=== PATIENT | female | born 1970 | race Caucasian/White ===

== ENCOUNTER 2021-06-19 12:15 | Emergency (ER) | payer OTHER, SELFPAY ==
--- NOTE | ~2021-06-19 | CT_ITS ---
EXAMINATION: CT abdomen pelvis w con EXAM DATE: 06/19/2021 16:57 INDICATION: Right lower quadrant pain for 2 days. TECHNIQUE: Spiral CT of the abdomen and pelvis was performed following intravenous injection of 100 m L Omnipaque 350. Axial, coronal and sagittal images of the abdomen and pelvis were reviewed. The do se-length product (DLP) for this examination was 271.46 mGy-cm. The exposure was tailored according to patient size (auto mA exposure control), and iterative reconstruction (ASIR) was used as additiona l dose reduction technique. Comparison is made to prior examination from 06/27/2017. FINDINGS: The liver, spleen, adrenal glands and pancreas are unremarkable. Gallbladder is unremarkab le. No biliary obstruction. Portal and splenic veins are patent. Kidneys enhance symmetrically. T here is no hydronephrosis. The uterus is unremarkable. The bladder is unremarkable. There is no retroperitoneal or pelvic lymphadenopathy. There is mild to moderate scattered arteriosclerotic dis ease. The appendix is not positively visualized. There is no pericecal inflammatory change to suggest appe ndicitis. There is small sliding gastroesophageal hiatal hernia. Moderate to large amount of gas a nd stool in the rectal vault, moderate amount of transverse and ascending colonic fluid and stool. No free intraperitoneal gas. The heart is normal in size. There are no pericardial or pleural effu sions. The lung bases are unremarkable. There are no osteoblastic or osteolytic lesions identified. IMPRESSION: 1. Moderate colonic fluid, stool and gas. 2. No acute intra-abdominal findings. Reviewed, dictated and finalized at location A.
[2021-06-19 12:21] VITALS: BP 98/56; PULSE 88; RESP 20; TEMP 36.6; O2SAT 100
[2021-06-19 12:36] LABS: Basophils Absolute Auto 0.1 K/mm3 (0.0-0.1); Basophils Percent Auto 1.3 % (0.2-1.2); Eosinophils Absolute Auto 0.1 K/mm3 (0-0.3); Eosinophils Percent Auto 2.5 % (0-4.4); Hematocrit 36.9 % (37.0-47.0); Hemoglobin 12.1 g/dL (12.0-15.0); Immature Granulocyte Absolute 0.01 K/mm3 (0.00-0.031); Immature Granulocyte Percent A 0.2 % (0-0.5); Lymphocytes Absolute Auto 1.47 K/mm3 (0.9-3.2); Mean Corpuscular HGB Conc 32.8 g/dl (32-36); Mean Corpuscular Hemoglobin 28.5 pg (26-34); Mean Corpuscular Volume 86.8 fl (80-100); Mean Platelet Volume 8.4 fl (7.4-10.4); Monocytes Absolute Auto 0.3 K/mm3 (0.1-0.6); Monocytes Percent Auto 5.9 % (2.6-8.5); Neutrophils Absolute Auto 3.3 K/mm3 (1.3-6.7); Neutrophils Percent Auto 62.1 % (45.5-73.1); Platelet Count Result 237 k/mm3 (150-375); Red Blood Count 4.25 M/mm3 (4.2-5.4); Red Cell Distribution Width 16.4 % (11.5-14.5); White Blood Count 5.3 K/mm3 (4.5-10.0)
[2021-06-19 12:44] LABS: Add Urine Microscopic? YES; Appearance Urine Clear (Clear); Bilirubin Urine Negative (Negative); Blood Urine Negative (Negative); Color Urine Yellow (Yellow); Glucose Urine UA Negative (Negative); Ketones Urine Trace mg/dL (Negative); Leukocyte Esterase Ur Negative LEU/UL (Negative); Mucus Urine Few /lpf; Nitrate Urine Negative (Negative); Protein Urine 1+ mg/dL (Negative); Specific Grav Ur 1.027 (1.001-1.035); Squamous Epithelial Cell Urine Moderate /hpf (Few); Urobilinogen Urine Negative mg/dL (<2.0)
[2021-06-19 12:49] LABS: Alanine Aminotransferase 15 U/L (4-35); Albumin Level 4.4 g/dL (3.5-5.1); Alkaline Phosphatase 114 U/L (38-126); Anion Gap 11 mmol/L (8-16); Aspartate Amino Transferase 20 U/L (14-36); Bilirubin,Total 0.6 mg/dL (0.2-1.3); Blood Urea Nitrogen 19 mg/dL (7-17); Calcium 9.5 mg/dL (8.4-10.2); Carbon Dioxide 21 mmol/L (22-30); Chloride 106 mmol/L (98-107); Estimated CRCL calculation 68 ml/min; Estimated Glomerular Filt Rate > 60; Glucose 159 mg/dL (65-110); Lipase 46 U/L (23-300); Potassium 3.7 mmol/L (3.4-5.0); Sodium 138 mmol/L (137-145)
[2021-06-19] MEDS: SODIUM CHLORIDE 0.9% IV 1,000 ML 999 ML IV CONT (16:16)
[2021-06-19] MEDS: MORPHINE SULFATE (*CRX) 4 MG/ML INJ IV PUSH (16:16)
[2021-06-19] MEDS: ONDANSETRON INJ 4 MG/2 ML VIAL IV PUSH (16:16)
--- NOTE | 2021-06-19 17:30 | ED.GENADULT ---
HPI - General Adult General Chief complaint: Abdominal Pain Stated complaint: Abd Pain Time Seen by Provider: 06/19/21 15:12 Source: patient and RN notes reviewed Mode of arrival: ambulatory Limitations: no limitations History of Present Illness HPI narrative: Patient is a 50-year-old female who presents couple days duration of discomfort in the right lower abdomen is a cramping sharp pain was referred to the emergency department for evaluation on arrival is resting comfortably in the room in no distress denies any vomiting diarrhea vaginal complaints or urinary symptoms denies similar occurrence in the past. Denies sick contacts. Pain is worse with activity and movement Related Data Allergies Allergy/AdvReac Type Severity Reaction Status Date / Time No Known Allergies Allergy Unverified 02/19/15 21:28 NUTRASWEET Allergy Mild Uncoded 06/21/10 10:25 Review of Systems Review of Systems: All systems reviewed & are unremarkable except as noted in HPI and below Exam Narrative: GENERAL: Well-appearing, well-nourished, and in no acute distress. HEAD: Normocephalic, atraumatic. EYES: PERRLA and EOMI. ENT: Nares clear, no rhinorrhea or epistaxis. Mucous membranes moist. CHEST: Clear to auscultation. No respiratory distress. No wheezes rales or rhonchi HEART: Regular rate and rhythm. No murmur heard. Normal peripheral pulses. ABDOMEN: Soft, tenderness of the right lower abdomen no rebound or guarding r, nondistended EXTREMITIES: Normal range of motion. No edema. SKIN: Warm, dry, no rash. NEURO: No focal deficits. Alert and oriented x3. PSYCH: Normal mood and affect. Course Course Emergency Course: Patient in the room nondistressed aware of case findings treatment plan and diagnosis agreeing to follow-up as instructed or to return if symptoms worsen or concerns. Patient likely with constipation as the etiology she was made aware of her case findings treatment plan and diagnosis she is nontoxic-appearing was hydrated medicated in the emergency department will be discharged home with outpatient follow-up and provided with reasons to return Vital Signs Vital signs: Vital Signs Temperature 97.8 F 06/19/21 12:21 Pulse Rate 88 06/19/21 12:21 Respiratory Rate 20 06/19/21 12:21 Blood Pressure 98/56 L 06/19/21 12:21 Pulse Oximetry 100 06/19/21 12:21 Temperature 97.8 F 06/19/21 12:21 Pulse Rate 88 06/19/21 12:21 Respiratory Rate 20 06/19/21 12:21 Blood Pressure 98/56 L 06/19/21 12:21 Pulse Oximetry 100 06/19/21 12:21 Medical Decision Making MDM Narrative Medical decision making narrative: Patient in the room nondistressed aware of case finding treatment plan and diagnosis agreeing to follow-up as instructed provided with reasons to return constipation is the likely etiology no other concerning findings in the imaging or blood work she is afebrile nontoxic-appearing nondistressed and will be discharged home Vital Signs Vital Signs: Vital Signs Temperature 97.8 F 06/19/21 12:21 Pulse Rate 88 06/19/21 12:21 Respiratory Rate 20 06/19/21 12:21 Blood Pressure 98/56 L 06/19/21 12:21 Pulse Oximetry 100 06/19/21 12:21 Temperature 97.8 F 06/19/21 12:21 Pulse Rate 88 06/19/21 12:21 Respiratory Rate 20 06/19/21 12:21 Blood Pressure 98/56 L 06/19/21 12:21 Pulse Oximetry 100 06/19/21 12:21 Lab Data Result diagrams: 06/19/21 12:27 06/19/21 12:27 Labs: Lab Results 06/19/21 06/19/21 06/19/21 Range/Units 12:27 12:27 12:32 WBC 5.3 (4.5-10.0) K/mm3 RBC 4.25 (4.2-5.4) M/mm3 Hgb 12.1 (12.0-15.0) g/dL Hct 36.9 L (37.0-47.0) % MCV 86.8 (80-100) fl MCH 28.5 (26-34) pg MCHC 32.8 (32-36) g/dl RDW 16.4 H (11.5-14.5) % Plt Count 237 (150-375) k/mm3 MPV 8.4 (7.4-10.4) fl Immature Gran % (Auto) 0.2 (0-0.5) % Neut % (Auto) 62.1 (45.5-73.1) % Lymph % (Auto) 28.0 (18.3-44.2) % Payne % (A
[2021-06-19 18:07] VITALS: BP 99/68; PULSE 65; RESP 22; O2SAT 98
== END 2021-06-19 18:09 | disposition home or self-care (01) ==
PROVIDERS: Emergency Medicine; Emergency Provider Emergency Medicine; PCP Family Medicine
DX: K59.00 Constipation, unspecified (principal)
CPT/HCPCS: 36415; 74177; 80053; 81001; 81025; 83690; 85025; 87086; 96361; 96374; 96375; 99284; J2270; J2405; J7030; Q9967

== ENCOUNTER → 2021-10-12 03:13 | Outpatient (CLI) | payer OTHER, SELFPAY ==
[2021-10-12 21:56] LABS: SARS-CoV-2 RNA PCR Negative
== END ==
PROVIDERS: PCP Nurse Practitioner Adult Health; Visit Provider Nurse Practitioner Adult Health
DX: J01.90 Acute sinusitis, unspecified (principal); Z20.822 Contact with and (suspected) exposure to COVID-19
CPT/HCPCS: C9803; U0003; U0005

== ENCOUNTER 2024-01-21 09:44 | Outpatient (CLI) | payer BC, SELFPAY ==
--- NOTE | ~2024-01-21 | XR_ITS ---
EXAMINATION: XR chest 2V DATE: 01/21/2024 09:58 INDICATION: Cough. Shortness of breath. TECHNIQUE: Frontal and lateral views of the chest were obtained. COMPARISON: CT abdomen and pelvis 06/19/2021 FINDINGS: There is no pneumonia, pleural effusion, or pneumothorax. The heart size is normal. IMPRESSION: 1. No acute cardiopulmonary disease. Reviewed, dictated and finalized at location A.
[2024-01-21 19:20] LABS: Hematocrit 42.2 % (37.0-47.0); Hemoglobin 13.3 g/dL (12.0-15.0); Mean Corpuscular HGB Conc 31.5 g/dl (32-36); Mean Corpuscular Hemoglobin 29.8 pg (26-34); Mean Corpuscular Volume 94.4 fl (80-100); Mean Platelet Volume 10.4 fl (7.4-10.4); Platelet Count Result 214 k/mm3 (150-375); Red Blood Count 4.47 M/mm3 (4.2-5.4); Red Cell Distribution Width 14.3 % (11.5-14.5); White Blood Count 9.3 K/mm3 (4.5-10.0)
[2024-01-21 19:46] LABS: Appearance Urine Turbid (Clear); Bacteria Urine 3+ /hpf; Bilirubin Urine 1+ (Negative); Blood Urine Negative (Negative); Color Urine Dark Yellow (Yellow); Glucose Urine UA Negative (Negative); Hyaline Casts Urine Present /lpf; Ketones Urine Trace mg/dL (Negative); Leukocyte Esterase Ur 1+ LEU/UL (Negative); Need Manual Microscopic Reviewed; Nitrate Urine Negative (Negative); Non Pathogenic Casts >20; Protein Urine 2+ mg/dL (Negative); RBC Urine 0-2 /hpf (0-2); Specific Grav Ur 1.025 (1.001-1.035); Squamous Epithelial Cell Urine Many /hpf (Few); pH Urine 5.5 (5.0-9.0)
[2024-01-21 19:48] LABS: Add Urine Microscopic? YES; Alanine Aminotransferase 26 U/L (6-35); Albumin Level 4.3 g/dL (3.5-5.1); Alkaline Phosphatase 111 U/L (38-126); Anion Gap 9 mmol/L (4-12); Aspartate Amino Transferase 52 U/L (14-36); Bilirubin,Total 0.5 mg/dL (0.2-1.3); Blood Urea Nitrogen 20 mg/dL (7-17); Calcium 9.4 mg/dL (8.4-10.2); Carbon Dioxide 21 mmol/L (22-30); Chloride 107 mmol/L (98-107); D Dimer 3.75 ug/mL (<0.48); Estimated Glomerular Filt Rate 39; Glucose 101 mg/dL (65-110); Potassium 3.5 mmol/L (3.4-5.0); Sodium 137 mmol/L (137-145)
== END 2024-01-21 09:45 | disposition home or self-care (01) ==
LOC: ANHBWCLAB 09:46
PROVIDERS: PCP Nurse Practitioner Adult Health; Visit Provider Nurse Practitioner Adult Health
DX: R05.9 Cough, unspecified (principal); R53.1 Weakness; R06.02 Shortness of breath
CPT/HCPCS: 36415; 71046; 80053; 81001; 85027; 85380

== ENCOUNTER 2024-01-22 09:08 | Emergency (ER) | payer BC, SELFPAY ==
--- NOTE | ~2024-01-22 | CT_ITS ---
EXAMINATION: CTA chest PE protocol DATE: 01/22/2024 10:13 CDT INDICATION: Shortness of breath TECHNIQUE: Computed tomographic angiography (CTA) of the chest was performed with 100 mL Omnipaque-35 0 intravenous contrast. The dose-length product was 179.91 mGy-cm. Maximum intensity projection 3D-re constructions of the aorta and other arteries were constructed by the technologist on a separate work station. Automated exposure control and iterative reconstruction technique were employed. COMPARISON: None. FINDINGS: Study is technically adequate without evidence for pulmonary embolism. No significant pleur al or pericardial effusion. Small hiatal hernia. Heart size normal. No thoracic lymphadenopathy. Ther e is mild atherosclerosis of the aorta. Upper abdomen is unremarkable. There is mild paraseptal emphy sema. There is dependent atelectasis. No suspicious pulmonary nodules or masses. Mild thoracic spondy losis. IMPRESSION: 1. No acute cardiopulmonary disease. No evidence for pulmonary embolism. Reviewed, dictated and finalized at location B.
[2024-01-22 09:15] VITALS: BP 151/96; PULSE 69; RESP 16; TEMP 36.8; O2SAT 100
[2024-01-22] MEDS: SODIUM CHLORIDE 0.9% IV 1,000 ML 999 ML IV CONT (09:23)
[2024-01-22 09:28] LABS: Basophils Percent Auto 0.3 % (0.2-1.2); Hematocrit 39.7 % (37.0-47.0); Hemoglobin 13.3 g/dL (12.0-15.0); Immature Granulocyte Absolute 0.05 K/mm3 (0.00-0.031); Immature Granulocyte Percent A 0.5 % (0-0.5); Immature Platelet Fraction Pct 4.1 % (0.9-11.2); Lymphocytes Percent Auto 12.4 % (18.3-44.2); Mean Corpuscular HGB Conc 33.5 g/dl (32-36); Mean Corpuscular Hemoglobin 30.5 pg (26-34); Mean Corpuscular Volume 91.1 fl (80-100); Mean Platelet Volume 9.8 fl (7.4-10.4); Monocytes Absolute Auto 0.6 K/mm3 (0.1-0.6); Neutrophils Absolute Auto 7.8 K/mm3 (1.3-6.7); Neutrophils Percent Auto 80.8 % (45.5-73.1); Platelet Count Result 232 k/mm3 (150-375); Red Blood Count 4.36 M/mm3 (4.2-5.4); White Blood Count 9.7 K/mm3 (4.5-10.0)
[2024-01-22 09:30] VITALS: BP 134/76; PULSE 69; RESP 18; TEMP 36.6; O2SAT 100
[2024-01-22 09:39] LABS: Alanine Aminotransferase 35 U/L (6-35); Albumin Level 4.3 g/dL (3.5-5.1); Alkaline Phosphatase 130 U/L (38-126); Anion Gap 12 mmol/L (4-12); Aspartate Amino Transferase 31 U/L (14-36); Bilirubin,Total 0.5 mg/dL (0.2-1.3); Blood Urea Nitrogen 20 mg/dL (7-17); Calcium 9.6 mg/dL (8.4-10.2); Carbon Dioxide 18 mmol/L (22-30); Chloride 109 mmol/L (98-107); Estimated CRCL calculation 51 ml/min; Estimated Glomerular Filt Rate 47; Glucose 127 mg/dL (65-110); Potassium 3.7 mmol/L (3.4-5.0); Sodium 139 mmol/L (137-145)
[2024-01-22 10:30] VITALS: BP 135/78; PULSE 74; RESP 19; TEMP 36.6; O2SAT 100
--- NOTE | 2024-01-22 11:22 | PC.NURSE ---
assumed care of pt from MYA Black. pt resting on stretcher, no visible distress noted. pt updated on plan of care: awaiting edp to review results of testing and imaging. no requests at this time
[2024-01-22 11:27] VITALS: BP 137/83; PULSE 66; RESP 18; TEMP 37.1; O2SAT 100
--- NOTE | 2024-01-22 11:39 | ED.GENADULT ---
HPI - General Adult General Chief complaint: Shortness of Breath/Dyspnea Stated complaint: sent by PCP for bad blood test Time Seen by Provider: 01/22/24 09:12 History of Present Illness HPI narrative: Patient is a 53-year-old female who presents ER with shortness of breath. Referred here by her primary care office due to an elevated D-dimer level that was drawn yesterday. Patient has been having shortness of breath for several days with exertion. No chest pressure. No leg swelling or calf pain. No fevers or chills or sweats. Related Data Allergies Allergy/AdvReac Type Severity Reaction Status Date / Time No Known Allergies Allergy Unverified 01/22/24 09:09 NUTRASWEET Allergy Mild Hives Uncoded 01/22/24 09:09 Review of Systems Review of Systems: All systems reviewed & are unremarkable except as noted in HPI and below Constitutional: Constitutional: Reports no additional constitutional complaints ENT: Reports system reviewed and no additional complaints, except as documented Cardiovascular: Cardiovascular: Reports no additional cardiovascular complaints Respiratory: Respiratory: Denies cough, Reports dyspnea and Denies wheezing Gastrointestinal: Gastrointestinal: Reports no additional gastrointestinal complaints Genitourinary: Genitourinary: Reports no additional female genitourinary complaints [facility] Past Medical History Medical History (Updated 01/22/24 @ 11:48 by Amilcar Rodriguez MD) Arthritis delivery delivered Chronic GERD IBS (irritable bowel syndrome) Migraine Surgical History Surgical History (Updated 04/29/23 @ 13:44 by Mirela Diaz MA) History of tonsillectomy and adenoidectomy History of tubal ligation Family History Family History (Updated 04/29/23 @ 13:39 by Mirela Diaz MA) Father History of ETOH abuse Sibling Cancer Social History Social History (Updated 04/29/23 @ 13:48 by Mirela Diaz MA) Smoking packs per day: 1 Smoking cigarettes per day: 20.0 Smoking status: Current every day smoker Tobacco type: cigarettes Alcohol intake: never Substance use: never Lack of Transportation: No Lack of Food: Never True Current Housing: I Have Housing Concerned About Future Housing: No Difficulty Paying Gas/Electric Bills: No Difficulty Paying for Meds: No Currently Unemployed: No Education: High School Diploma/GED Difficulty w/ Childcare or Family Care: No Living arrangements: with family Gender identity (if verbalized by the patient): Female Agree to blood products: Yes Exam Narrative: GENERAL: Well-appearing, well-nourished, and in no acute distress. HEAD: Normocephalic, atraumatic. EYES: PERRL and EOMI. ENT: Mucous membranes moist. NECK: Supple. CHEST: Clear to auscultation. No respiratory distress. HEART: Regular rate and rhythm. Normal peripheral pulses. ABDOMEN: Soft, nontender, nondistended. EXTREMITIES: Normal range of motion. No edema. SKIN: Warm, dry, no rash. NEURO: Alert and oriented x3. PSYCH: Normal mood and affect. Course Course Emergency Course: No pulmonary emboli. Creatinine improving. Patient given IV fluid. Outpatient lab work checked from yesterday as well as PCP note. Vital Signs Vital signs: Vital Signs Temperature 98.2 F 01/22/24 09:15 Pulse Rate 69 01/22/24 09:15 Respiratory Rate 16 01/22/24 09:15 Blood Pressure 151/96 H 01/22/24 09:15 Pulse Oximetry 100 01/22/24 09:15 Oxygen Delivery Room Air 01/22/24 09:15 Temperature 98.7 F 01/22/24 11:27 Pulse Rate 66 01/22/24 11:27 Respiratory Rate 18 01/22/24 11:27 Blood Pressure 137/83 01/22/24 11:27 Pulse Oximetry 100 01/22/24 11:27 Oxygen Delivery Room Air 01/22/24 09:15 Medical Decision Making Vital Signs Vital Signs: Vital Signs Temperature 98.2 F 01/22/24 09:15 Pulse Rate 69 01/22/24 09:15 Respiratory Rate 16 01/22/24 09:15 Blood Pressure 151/96 H
[2024-01-22 11:56] VITALS: BP 147/80; PULSE 68; RESP 16; TEMP 36.7; O2SAT 99
== END 2024-01-22 11:57 | disposition home or self-care (01) ==
PROVIDERS: Emergency Provider Emergency Medicine; PCP Nurse Practitioner Adult Health
DX: R79.1 Abnormal coagulation profile (principal); R06.00 Dyspnea, unspecified; F17.210 Nicotine dependence, cigarettes, uncomplicated
CPT/HCPCS: 36415; 71275; 80053; 85025; 85055; 96360; 99284; J7030; Q9967